=== PATIENT | female | born 1945 | race Caucasian/White ===

== ENCOUNTER 2024-05-07 10:08 | Emergency (ER) | payer OTHER, SELFPAY ==
[2024-05-07 10:22] VITALS: BP 155/74; PULSE 82; RESP 18; TEMP 37.2; O2SAT 97; BMI 21.2
--- NOTE | 2024-05-07 11:01 | ED.GENADULT ---
HPI - General Adult General Time Seen by Provider: 11:02 Date Seen: 05/07/24 Chief complaint: Extremity Pain/Injury, Upper Stated complaint: Left wrist swelling/soreness Time Seen by Provider: 05/07/24 11:01 Source: patient and RN notes reviewed Mode of arrival: ambulatory Limitations: no limitations History of Present Illness HPI narrative: This 79yo female is coming into the ED with concerns of left wrist pain since Saturday. They have been using ice, this does take the swelling down but it comes back. Her wrist is sore to move. There is absolutely no trauma. No fevers or chills. No other joints are bothering her. She has never been diagnosed with gout or pseudogout before. She did sleep more yesterday, nap which is not usual for her. She has not been sick with any significant illness recently. If she has not tried any Tylenol or ibuprofen. Related Data Home Medications ?Medication ?Instructions ?Recorded ?Confirmed aspirin 81 mg tablet,delayed 81 mg PO DAILY 05/07/24 05/07/24 release chlorthalidone 25 mg tablet 25 mg PO DAILY 05/07/24 05/07/24 lisinopril 20 mg tablet mg PO DAILY 05/07/24 metoprolol succinate 100 mg 100 mg PO DAILY 05/07/24 05/07/24 tablet,extended release 24 hr Previous Rx's ?Medication ?Instructions ?Recorded prednisone 20 mg tablet 20 mg PO BID #10 tabs 05/07/24 Allergies Allergy/AdvReac Type Severity Reaction Status Date / Time No Known Drug Allergies Allergy Verified 05/07/24 10:25 Review of Systems Narrative: As per HPI. PFSH PFS Medical History (Updated 05/07/24 @ 12:18 by Pau Galdamez MD) Osteoarthritis ?M19.90 - Unspecified osteoarthritis, unspecified site (ICD-10) Chronic kidney disease, stage 3a ?N18.31 - Chronic kidney disease, stage 3a (ICD-10) Chronic diastolic CHF (congestive heart failure) ?I50.32 - Chronic diastolic (congestive) heart failure (ICD-10) Hypertension ?I10 - Essential (primary) hypertension (ICD-10) Social History Smoking Status: Never smoker How often do you have a drink containing alcohol: never AUDIT-C Alcohol total score: 0 Non-prescribed substance use: denies use Exam Const: Vital Signs, click to edit/add: Vital Signs - 24 hr 05/07/24 10:22 Temperature 99 F Pulse Rate [Pulse Oximeter] 82 Respiratory Rate 18 Blood Pressure [Ri ght Upper Arm] 155/74 H Pulse Oximetry 97 Oxygen Delivery Me thod Room Air This 79-year-old female is lying in the bed in exam room 1, alert, interactive, no apparent distress. Pupils equal round reactive, sclera clear, symmetrical facial function. Lungs are clear, good air entry, no wheezing or crackles, no tachypnea. CV regular rate and rhythm, no significant murmur, normal S1-S2. Left wrist is swollen, warm, pinkish to light erythematous change around the wrist. She does have flexion extension and ulnar radial deviation but does feel discomfort with that. The swelling does not extend into the hand, she can flex and extend her fingers, has normal sensation in her fingers. The swelling is generalized about the wrist. Documenting provider has reviewed patient's vital signs: yes Course Course ED Course: Have reviewed with them that I suspect an inflammatory arthropathy like gout or pseudogout. She really does not have systemic signs or symptoms that point towards a septic arthritis. Will get labs, will get x-ray of her left wrist. Reevaluation(s) Time of Reevaluation #1: 12:09 Reevaluation #1: Have reviewed labs and x-ray with patient. Do feel that this is gout. Did check to see if orthopedics was still here to potentially do aspiration and injection but they are not. Did review her chart and she has documentation of hypertension, chronic diastolic CHF, osteoarthritis affecting her left shoulder, chronic kidney disease stage 3A with GFR 45-59. Her sodium was 133 on April 27 and hemoglobin 11.1. Vital Signs Vital signs: Initial Vital Signs Temperature 99 F 05/07/24 10:22 Temperature Source Temporal Artery Scan 05/07/24 10:22 Pulse Rate 82 05/07/24 10:22 Respiratory Rate 18 05/07/24 10:22 Blood Pressure 155/74 H 05/07/24 10:22 Blood Pressure Mean 101 05/07/24 10:22 Pulse Oximetry 97 05/07/24 10:22 Oxygen Delivery Method Room Air 05/07/24 10:22 Vital Signs Temperature 99 F 05/07/24 10:22 Pulse Rate 82 05/07/24 10:22 Respiratory Rate 18 05/07/24 10:22 Blood Pressure 155/74 H 05/07/24 10:22 Pulse Oximetry 97 05/07/24 10:22 Oxygen Delivery Method Room Air 05/07/24 10:22 Temperature 99 F 05/07/24 12:40 Pulse Rate 82 05/07/24 12:40 Respiratory Rate 18 05/07/24 12:40 Blood Pressure 155/74 H 05/07/24 12:40 Pulse Oximetry 97 05/07/24 10:22 Oxygen Delivery Method Room Air 05/07/24 10:22 Medical Decision Making Lab Data Lab results reviewed: Yes I reviewed the patient's lab results Labs: Lab Results 05/07/24 Range/Units 11:23 WBC 9.08 (4.50-11.00) K/uL RBC 4.02 (4.00-5.20) m/uL Hgb 11.6 L (12.0-16.0) gm/dL Hct 35.4 (33.0-51.0) % MCV 88 (80-100) fL MCH 29 (26-34) pg MCHC 33 (32-36) gm/dL RDW Coeff of [place] 12.8 (11.5-15.5) % Plt Count 287 (140-440) K/uL Neut % (Auto) 72.9 H (42.0-72.0) % Lymph % (Auto) 12.8 L (20-44) % [place] % (Auto) 10.6 (0.0-11.0) % Eos % (Auto) 2.5 (0.0-7.0) % Baso % (Auto) 1.1 (0.0-3.0) % Neut # (Auto) 6.60 (1.7-7.0) K/uL Lymph # (Auto) 1.20 (0.90-2.90) K/uL [place] # (Auto) 1.00 H (0.00-0.90) K/UL Eos # (Auto) 0.23 (0.00-0.50) K/uL Baso # (Auto) 0.10 (0.00-0.30) K/uL Abs Immat Gran (auto) 0.01 (0.00-0.30) K/uL Imm/Tot Granulo (auto) 0.1 % Sodium 130 L (135-149) mmol/L Potassium 3.7 (3.6-5.1) mmol/L Chloride 91 L (96-114) mmol/L Carbon Dioxide 31 (20-32) mmol/L Anion Gap 8 (7-15) mEq/L BUN 18 (7-30) mg/dL Creatinine 0.9 (0.5-1.5) mg/dL Estimated Creat Clear 39.70 Estimated GFR 64 ml/min Glucose 103 (60-115) mg/dL Uric Acid 5.5 (2.2-8.4) mg/dL Calcium 9.5 (8.4-10.6) mg/dL C-Reactive Protein 2.9 H (0.5-1.0) mg/dL Imaging Data XR left wrist: Attestation: I have reviewed the pertinent imaging results. Radiologist's impression: Patient: OLU TEJEDA Facility:?[facility] Patient ID:?[id number] Site Patient ID:?[id number]. Site :?[id number] Study:?XRay-Extremity Left 3V-05/07/2024 11:22:08 AM Ordering Physician:?Rudolph Mai Final Report: Indication: pain, swelling, no trauma. Technique: Left wrist 3 views. Comparison: None. Findings: Bones: Alignment is normal. No fractures or bone lesions. Joint spaces: Scattered degenerative changes, most pronounced with severe 1st carpometacarpal and 2nd metacarpophalangeal joint arthrosis. Soft tissues: Unremarkable. Impression: No evident acute fracture or dislocation. 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 Dictated by Lucien Tanner MD @ 05/07/2024 11:28:50 AM (Electronic Signature) Discharge Plan Discharge Clinical Impression: Arthropathy of left wrist Patient Disposition: Home, Self-Care Condition: Stable Instructions: Low Purine Diet (ED), Gout (ED) Additional Instructions: Your left wrist is most likely affected by a gout, still possible that it could be pseudogout as well. Both are responsive to prednisone which we will have you try. Take with food to protect her stomach. Can use Tylenol 1000 mg 3 times a day for pain management, continue icing and elevating. Do recommend getting scheduled for followup in clinic within 3-5 days for recheck with your primary care provider. If you develop fevers, have increasing pain, swelling despite prednisone, do need to be re-evaluated. Did provide a handout for food recommendations for patients with gout. If this is indeed gout, the chlorthalidone could be a medicine that could precipitate this. I do not want you to stop this, need to work with your primary care provider further as you do have hypertension. Activity Level: Activity as Tolerated Prescriptions: New prednisone 20 mg tablet 20 mg PO BID Qty: 10 0RF No Action metoprolol succinate 100 mg tablet extended release 24 hr 100 mg PO DAILY chlorthalidone 25 mg tablet 25 mg PO DAILY lisinopril 20 mg tablet PO DAILY aspirin 81 mg tablet,delayed release (DR/EC) 81 mg PO DAILY Follow Up/Referrals: Provider,Not a Local [Primary Care Provider] - Stand Alone Forms: [facility] Info Instructions
[2024-05-07 11:32] LABS: Basophils Percent Auto 1.1 % (0.0-3.0); Eosinophils Absolute Auto 0.23 K/uL (0.00-0.50); Eosinophils Percent Auto 2.5 % (0.0-7.0); Hematocrit 35.4 % (33.0-51.0); Hemoglobin* 11.6 gm/dL (12.0-16.0); Immature Granulocytes Abs Auto 0.01 K/uL (0.00-0.30); Immature Granulocytes Pct Auto 0.1 %; Lymphocytes Percent Auto 12.8 % (20-44); Mean Corpuscular HGB Conc 33 gm/dL (32-36); Mean Corpuscular Hemoglobin 29 pg (26-34); Mean Corpuscular Volume 88 fL (80-100); Monocytes Percent Auto 10.6 % (0.0-11.0); Neutrophils Percent Auto 72.9 % (42.0-72.0); Platelet Count* 287 K/uL (140-440); RDW Coefficient of Variation % 12.8 % (11.5-15.5); Red Blood Count 4.02 m/uL (4.00-5.20); White Blood Count* 9.08 K/uL (4.50-11.00)
[2024-05-07 11:33] LABS: Slide Review Reflex No
[2024-05-07 11:45] LABS: Chloride* 91 mmol/L (96-114); Potassium* 3.7 mmol/L (3.6-5.1); Sodium* 130 mmol/L (135-149)
[2024-05-07 11:48] LABS: Creatinine* 0.9 mg/dL (0.5-1.5); Estimated Glomerular Filt Rate 64 ml/min
[2024-05-07 11:49] LABS: Anion Gap 8 mEq/L (7-15); Blood Urea Nitrogen* 18 mg/dL (7-30); Calcium* 9.5 mg/dL (8.4-10.6); Carbon Dioxide* 31 mmol/L (20-32); Glucose* 103 mg/dL (60-115); Uric Acid* 5.5 mg/dL (2.2-8.4)
[2024-05-07 11:51] LABS: C Reactive Protein* 2.9 mg/dL (0.5-1.0)
[2024-05-07 12:40] VITALS: BP 155/74; PULSE 82; RESP 18; TEMP 37.2
== END 2024-05-07 12:41 | disposition home or self-care (01) ==
PROVIDERS: Emergency Provider Family Medicine
DX: M13.832 Other specified arthritis, left wrist (principal)
CPT/HCPCS: 36415; 73110; 80048; 84550; 85025; 86140; 99283; 99284